=== PATIENT | male | born 1950 | race Caucasian/White ===

== ENCOUNTER 2022-01-22 10:05 | Emergency (ER) | payer MEDICARE ==
[2022-01-22 10:10] VITALS: BP 157/80; PULSE 59; RESP 18; TEMP 98.2
[2022-01-22] MEDS ORDERED: KETOROLAC 15 MG/ML 1 ML VIAL IM STA (10:20)
--- NOTE | 2022-01-22 10:24 | ED ---
General Adult HPI - General Chief complaint: Fall Stated complaint: fall, shoulder pain Time Seen by Provider: 01/22/22 10:15 Source: patient, RN notes reviewed, old records reviewed Mode of arrival: ambulatory Limitations: no limitations - History of Present Illness Initial comments: Well-appearing 71-year-old male presents ambulatory with complaints of falling on the ice yesterday landing on his right shoulder. Patient states he's been trying Shannon and pain patches at home with minimal relief. He states that he has pain with movement of the arm. He denies any other injuries. He denies hitting his head. He does take Plavix since heart catheterization in October 2021. -: days(s) (1) Location: right, upper extremity (shoulder) Severity scale (1-10): 7 Quality: aching Consistency: constant Improves with: immobilization Worsens with: movement Associated Symptoms: denies other symptoms Treatments Prior to Arrival: other (norcom, pain patch) - Related Data Allergies Allergy/AdvReac Type Severity Reaction Status Date / Time No Known Allergies Allergy Verified 01/22/22 10:07 Review of Systems ROS Statement: Those systems with pertinent positive or pertinent negative responses have been documented in the HPI. ROS Other: All systems not noted in ROS Statement are negative. Past Medical History Additional Past Medical History / Comment(s): cardiac stent History of Any Multi-Drug Resistant Organisms: None Reported Past Surgical History: Heart Catheterization With Stent Past Psychological History: No Psychological Hx Reported Smoking Status: Never smoker Past Alcohol Use History: None Reported Past Drug Use History: None Reported General Exam Limitations: no limitations General appearance: alert, in no apparent distress Head exam: Present: atraumatic Eye exam: Present: normal appearance. Absent: scleral icterus, conjunctival injection, periorbital swelling Neck exam: Present: normal inspection, full ROM. Absent: tenderness, meningismus Respiratory exam: Present: normal lung sounds bilaterally. Absent: respiratory distress, chest wall tenderness, accessory muscle use Cardiovascular Exam: Present: bradycardia Extremities exam: Present: normal capillary refill Right Shoulder Exam: Present: normal inspection, tenderness, tenderness over AC joint. Absent: full ROM, swelling, abrasion, laceration, ecchymosis, dislocation, erythema Upper Arm exam: Present: normal inspection, tenderness. Absent: full ROM, swelling, abrasion, ecchymosis, deformity Elbow exam: Present: normal inspection, full ROM. Absent: tenderness Forearm Wrist exam: Present: normal inspection, full ROM Hand Wrist exam: Present: normal inspection, full ROM Neuro motor exam: Present: wrist extension intact, thumb opposition intact, thumb IP flexion intact, thumb adduction intact, fingers 2-5 abduction intact Neurosensory exam: Present: radial nerve intact, ulnar nerve intact, median nerve intact Vascular: Present: normal capillary refill. Absent: vascular compromise Back exam: Present: normal inspection, full ROM. Absent: tenderness, CVA tenderness (R), CVA tenderness (L), rash noted Neurological exam: Present: alert, oriented X3, normal gait Psychiatric exam: Present: normal affect, normal mood Skin exam: Present: warm, dry, normal color. Absent: cyanosis, diaphoretic Course Vital Signs 01/22/22 10:07 Temperature 98.2 F Pulse Rate 59 L Respiratory 18 Rate Blood Pressure 157/80 O2 Sat by Pulse 98 Oximetry Medical Decision Making - Medical Decision Making 71-year-old male presents ambulatory after slip and fall yesterday on the ice landing on his right shoulder. Patient states that he has had pain with abduction and extension since the fall. He has had multiple doses of Shannon and using [id number] pain patches with minimal relief. X-ray of the right shoulder shows no acute fracture or dislocation. AC and glenohumeral joints appear moderately narrowed. Humerus is intact with no fracture or dislocation noted. He is neurovascularly intact. Patient was given a shot of Toradol in the emergency room and he'll be placed in a sling and directed to follow up with orthopedics for further evaluation of the shoulder. Case discussed with Dr. Esquivel. Patient is agreeable to this plan of care. Disposition Clinical Impression: Fall, Shoulder injury Disposition: HOME SELF-CARE Condition: Good Instructions (If sedation given, give patient instructions): How to Use a Sling (ED), Fall Prevention for Older Adults (ED), Shoulder Sprain (ED) Additional Instructions: Wear the sling during the day and take Aleve for pain and inflammation. You can also use [id number]-abn-[id number] pain patches, icy hot or capsaicin cream for pain. Follow up with orthopedics next week for evaluation of the shoulder for possible ligamentous injury. Return to the emergency room with any new or concerning symptoms including increased pain numbness or tingling. Is patient prescribed a controlled substance at d/c from ED?: No Referrals: Frederick Teixeira MD [Primary Care Provider] - 1-2 days Jaret Ventura PAC [PHYSICIAN AQUATICS COORDINATOR] - 1-2 days Time of Disposition: 10:46
--- NOTE | 2022-01-22 10:40 | XR ---
EXAMINATION TYPE: XR shoulder complete RT DATE OF EXAM: 01/22/2022 CLINICAL HISTORY: pain TECHNIQUE: Three views of the right shoulder are obtained. COMPARISON: None FINDINGS: There is no acute fracture/dislocation evident. The acromioclavicular and glenohumeral konrad int spaces appear moderately narrowed. The visualized ribs are intact and unremarkable. IMPRESSION: 1. There is no acute fracture or dislocation. ICD 10 NO FRACTURE, INITIAL EVALUATION
--- NOTE | 2022-01-22 10:41 | XR ---
EXAMINATION TYPE: XR humerus RT DATE OF EXAM: 01/22/2022 CLINICAL HISTORY: pain COMPARISON: NONE TECHNIQUE: Frontal and lateral images of the right humerus are obtained. FINDINGS: There is no acute fracture/dislocation evident. The joint spaces appear within normal limi ts. The overlying soft tissue appears unremarkable. IMPRESSION: There is no acute fracture or dislocation.ICD 10 NO FRACTURE, INITIAL EVALUATION
== END 2022-01-22 11:09 | disposition home or self-care (01) ==
LOC: EC 10:05
DX: S49.91XA Unspecified injury of right shoulder and upper arm, initial encounter (principal); W00.0XXA Fall on same level due to ice and snow, initial encounter
CPT/HCPCS: 99283; 96372; 73030; 73060; J1885